=== PATIENT | female | born 1965 | race Caucasian/White ===

== ENCOUNTER 2017-05-06 10:11 | Day surgery (SDC) | payer OTHER, MEDICAID ==
[2017-05-02 11:17] VITALS: BP 173/77
[~2017-05-06] VITALS: Ht 162.6 cm; Wt 68.4 kg
[~2017-05-06 10:11] MED LIST: AMLO10TA2 PO; ASPI-515 PO; HYDR-3245 PO; HYDR1TAB14 PO; INSU100C5 SQ; INSU100C5 SQ-INSULIN; INSU100I29 SQ; METO25TA35 PO; PRAV40TA2 PO; VALS1TAB12 PO
[2017-05-06] MEDS ORDERED: EMPA1TAB PO (11:21)
[2017-05-06] MEDS ORDERED: LACTATED RINGERS 1,000 ML IV SCH (11:37)
[2017-05-06] MEDS ORDERED: FENTANYL PF 100 MCG/2ML ONE (13:01)
[2017-05-06] MEDS ORDERED: MIDAZOLAM 1 MG/ML, 2ML ONE (13:01)
[2017-05-06] MEDS ORDERED: METOCLOPRAMIDE 5 MG/ML, 2ML ONE (13:01)
[2017-05-06] MEDS ORDERED: ONDANSETRON 2MG/ML, 2ML ONE (13:01)
[2017-05-06] MEDS ORDERED: PROPOFOL 10 MG/ML, 20ML ONE (13:01)
[2017-05-06] MEDS ORDERED: CEFAZOLIN 1,000 MG ONE ×2 (13:01)
[2017-05-06] MEDS ORDERED: LIDOCAINE-MPF 2% ,5ML ONE (13:01)
[2017-05-06] MEDS ORDERED: ACETAMINOPHEN 325 MG TABLET PO PRN (13:30)
[2017-05-06] MEDS ORDERED: HYDROmorphone 1 MG/ML, 1ML IV PRN (13:30)
[2017-05-06] MEDS ORDERED: PROMETHAZINE 25 MG/ML, 1ML IV PRN (13:30)
[2017-05-06] MEDS ORDERED: DIAZEPAM 5 MG/ML, 2ML IVPush PRN (13:30)
[2017-05-06] MEDS ORDERED: FENTANYL PF 100 MCG/2ML IV PRN (13:30)
[2017-05-06] MEDS ORDERED: MIDAZOLAM 1 MG/ML, 2ML IV PRN (13:30)
[2017-05-06] MEDS ORDERED: hydrALAzine 20 MG/ML, 1ML IV PRN (13:30)
[2017-05-06] MEDS ORDERED: ONDANSETRON 2MG/ML, 2ML IVPush PRN (13:30)
[2017-05-06] MEDS ORDERED: OXYcodone 5 MG/5 ML ORAL.SOL UDC PO PRN (13:30)
[2017-05-06] MEDS ORDERED: MEPERIDINE/PF 25MG/0.5ML IVPush PRN (13:30)
[2017-05-06] MEDS ORDERED: ALBUTEROL/IPRATROPIUM 2.5MG/0.5MG, 3 ML NPPB PRN (13:30)
[2017-05-06] MEDS ORDERED: LABETALOL 5MG/ML, 20ML IV PRN (13:30)
[2017-05-06] MEDS ORDERED: OXYcodone 5 MG/5 ML ORAL.SOL UDC ONE (14:30)
[2017-05-06] MEDS ORDERED: ACETAMINOPHEN 650 MG/20.3 ML UDC ONE (14:30)
[2017-05-06] MEDS ORDERED: HYDROcodone/APAP 7.5-325MG/15ML UDC ONE (14:49)
[2017-05-06] MEDS ORDERED: HYDROcodone/APAP 7.5-325MG/15ML UDC PO PRN (15:00)
== END 2017-05-06 18:00 ==
LOC: OUT 10:11
PROVIDERS: ATTEND Orthopaedic Surgery
DX: M20.31 Hallux varus (acquired), right foot (principal); M20.11 Hallux valgus (acquired), right foot; E11.9 Type 2 diabetes mellitus without complications; I10 Essential (primary) hypertension; E78.5 Hyperlipidemia, unspecified
CPT/HCPCS: 28292; 73660; 76001; 82962; C1713; J0690; J2250; J2405; J2704; J2765; J3010; J3490

== ENCOUNTER 2017-08-05 17:15 | Inpatient (IN) | payer OTHER, MEDICAID ==
[~2017-08-05] VITALS: Ht 162.6 cm; Wt 71.1 kg
[~2017-08-05 17:15] MED LIST changes: +EMPA1TAB PO
[2017-08-05 18:17] LABS: BASOPHILS # (AUTO) 0.02 x10^3/uL (0-0.1); BASOPHILS % (AUTO) 0 % (0-1); EOSINOPHILS # (AUTO) 0.33 x10^3/uL (0-0.4); EOSINOPHILS % (AUTO) 4 % (1-7); LYMPHOCYTES # (AUTO) 0.98 x10^3/uL (1-3.4); LYMPHOCYTES % (AUTO) 12 % (22-44); MD NO; MEAN CORPUSCULAR HEMOGLOBIN 30.5 pg (27.0-34.8); MEAN CORPUSCULAR VOLUME 89.7 fL (80-100); MEAN PLATELET VOLUME 8.6 fL (7.4-10.4); MONOCYTES # (AUTO) 0.55 x10^3/uL (0.2-0.8); MONOCYTES % (AUTO) 7 % (2-9); NEUTROPHILS # (AUTO) 6.48 x10^3/uL (1.8-6.8); NEUTROPHILS % (AUTO) 78 % (42-75); PLATELET COUNT 323 x10^3/uL (130-400); RED BLOOD COUNT 4.67 x10^6/uL (3.82-5.3)
[2017-08-05 18:29] LABS: ALBUMIN 3.9 g/dL (3.4-5.0); ANION GAP 7 mmol/L (5-15); CHLORIDE 101 mmol/L (98-107)
[2017-08-05 18:33] LABS: TROPONIN I < 0.015 ng/mL (0.000-0.045)
[2017-08-05] MEDS ORDERED: HYDROcodone/APAP 5/325 TABLET PO STA (19:28)
[2017-08-05] MEDS ORDERED: AZITHROMYCIN 500 MG in SODIUM CHLORIDE 0.9% 250 ML IV ONE (19:30)
[2017-08-05] MEDS ORDERED: CEFTRIAXONE PMX 1GM/50ML 50 ML IV ONE (19:30)
[2017-08-05] MEDS ORDERED: CEFTRIAXONE PMX 1GM/50ML 50 ML ONE (19:31)
[2017-08-05] MEDS ORDERED: HYDROcodone/APAP 5/325 TABLET ONE (19:32)
[2017-08-05] MEDS ORDERED: ACETAMINOPHEN 325 MG TABLET PO PRN (20:00)
[2017-08-05] MEDS ORDERED: GUAIFENESIN/DM 200-20MG, 10ML UDC PO PRN (20:00)
[2017-08-05] MEDS ORDERED: OMNIPAQUE 350 MG/ML, 100ML BOTTLE ONE (20:00)
[2017-08-05] MEDS ORDERED: GUAIFENESIN/DM 200-20MG, 10ML UDC PO ONE (20:00)
[2017-08-05] MEDS ORDERED: GLUCAGON 1 MG IM PRN (20:30)
[2017-08-05] MEDS ORDERED: DEXTROSE 4 GM TAB.CHEW PO PRN (20:30)
[2017-08-05] MEDS ORDERED: DEXTROSE 50%, 50ML SYRINGE IVPush PRN (20:30)
[2017-08-05 20:40] VITALS: BP 118/70
[2017-08-05] MEDS: SODIUM CHLORIDE FLUSH 10ML SYR IVF SCH (21:00)
[2017-08-05] MEDS: INSULIN LISPRO 100 UNITS/ML, PEN SQ-INSULIN SCH (22:00)
[2017-08-05] MEDS: METOPROLOL TARTRATE 25 MG TABLET PO SCH (22:09)
[2017-08-05] MEDS: ACETAMINOPHEN 500 MG TABLET PO PRN (22:09)
[2017-08-05] MEDS: BENZONATATE 100 MG CAPSULE PO SCH (22:09)
[2017-08-05] MEDS: PRAVASTATIN 40 MG TABLET PO SCH (22:09)
[2017-08-05] MEDS: FLUTICASONE NASAL SPRAY 16GM NAS SCH (23:00)
[2017-08-05] MEDS ORDERED: MELATONIN 5 MG TABLET PO ONE (23:00)
[2017-08-06 02:07] VITALS: BP 127/62
[2017-08-06 07:08] VITALS: BP 117/67
[2017-08-06] MEDS ORDERED: HYDROCHLOROTHIAZIDE PO SCH (09:00)
[2017-08-06] MEDS ORDERED: [UNRECOGNIZED DRUG - OTHER] PO SCH (09:00)
[2017-08-06] MEDS ORDERED: VALSARTAN PO SCH (09:00)
[2017-08-06] MEDS: FLUTICASONE NASAL SPRAY 16GM NAS SCH ×2 (09:07→20:01)
[2017-08-06] MEDS: SODIUM CHLORIDE FLUSH 10ML SYR IVF SCH ×2 (09:07→20:01)
[2017-08-06] MEDS: VALSARTAN 160 MG TABLET PO SCH (09:08)
[2017-08-06] MEDS: BENZONATATE 100 MG CAPSULE PO SCH ×3 (09:08→20:01)
[2017-08-06] MEDS: HYDROCHLOROTHIAZIDE 25 MG TABLET PO SCH (09:08)
[2017-08-06] MEDS: AMLODIPINE 5 MG TABLET PO SCH (09:09)
[2017-08-06] MEDS: METOPROLOL TARTRATE 25 MG TABLET PO SCH ×2 (09:09→20:01)
[2017-08-06] MEDS: ACETAMINOPHEN 500 MG TABLET PO PRN (09:32)
[2017-08-06] MEDS: INSULIN LISPRO 100 UNITS/ML, PEN SQ-INSULIN SCH ×4 (09:32→19:55)
[2017-08-06 11:02] LABS: BASOPHILS % (AUTO) 0 % (0-1); EOSINOPHILS % (AUTO) 0 % (1-7); LYMPHOCYTES # (AUTO) 0.47 x10^3/uL (1-3.4); LYMPHOCYTES % (AUTO) 6 % (22-44); MD NO; MEAN CORPUSCULAR HGB CONC 33.8 g/dL (32.4-35.8); MEAN CORPUSCULAR VOLUME 88.9 fL (80-100); MEAN PLATELET VOLUME 8.8 fL (7.4-10.4); MONOCYTES % (AUTO) 3 % (2-9); NEUTROPHILS # (AUTO) 7.35 x10^3/uL (1.8-6.8); NEUTROPHILS % (AUTO) 92 % (42-75); PLATELET COUNT 298 x10^3/uL (130-400); RED BLOOD COUNT 4.16 x10^6/uL (3.82-5.3); RED CELL DISTRIBUTION WIDTH 13.9 % (9.6-15.2)
[2017-08-06] MEDS: GUAIFENESIN/DM 200-20MG, 10ML UDC PO PRN (12:00)
[2017-08-06 12:35] LABS: HEMOGLOBIN A1C 7.7 % (4.2-6.3)
[2017-08-06 12:41] VITALS: BP 108/60
[2017-08-06] MEDS ORDERED: HYDR-3307 PO (15:39)
[2017-08-06] MEDS: HYDROcodone/APAP 10/325 MG TABLET PO PRN (16:51)
[2017-08-06 19:23] VITALS: BP 135/82
[2017-08-06] MEDS: GUAIFENESIN ER 600 MG TABLET PO SCH (20:01)
[2017-08-06] MEDS: PRAVASTATIN 40 MG TABLET PO SCH (20:01)
[2017-08-07 00:28] VITALS: BP 155/68
[2017-08-07] MEDS ORDERED: INSULIN LISPRO 100 UNITS/ML, PEN SQ-INSULIN SCH (01:00)
[2017-08-07] MEDS: HYDROcodone/APAP 10/325 MG TABLET PO PRN ×2 (04:25→16:46)
[2017-08-07 04:47] VITALS: BP 136/68
[2017-08-07 07:20] VITALS: BP 143/56
[2017-08-07] MEDS: VALSARTAN 160 MG TABLET PO SCH (08:47)
[2017-08-07] MEDS: HYDROCHLOROTHIAZIDE 25 MG TABLET PO SCH (08:48)
[2017-08-07] MEDS: BENZONATATE 100 MG CAPSULE PO SCH ×3 (08:48→20:37)
[2017-08-07] MEDS: GUAIFENESIN ER 600 MG TABLET PO SCH ×2 (08:48→20:36)
[2017-08-07] MEDS: FLUTICASONE NASAL SPRAY 16GM NAS SCH ×2 (08:48→20:36)
[2017-08-07] MEDS: AMLODIPINE 5 MG TABLET PO SCH (08:48)
[2017-08-07] MEDS: SODIUM CHLORIDE FLUSH 10ML SYR IVF SCH ×2 (08:48→20:37)
[2017-08-07] MEDS: METOPROLOL TARTRATE 25 MG TABLET PO SCH ×2 (08:48→20:36)
[2017-08-07] MEDS: INSULIN LISPRO 100 UNITS/ML, PEN SQ-INSULIN SCH ×4 (08:49→20:38)
[2017-08-07] MEDS: methylPREDNISolone SOD SUCC 40 MG/ML IV SCH ×2 (11:53→19:30)
[2017-08-07] MEDS: AZITHROMYCIN 250 MG TABLET PO SCH (11:53)
[2017-08-07 12:18] VITALS: BP 123/57
[2017-08-07 18:59] VITALS: BP 135/56
[2017-08-07] MEDS: GUAIFENESIN/DM 200-20MG, 10ML UDC PO PRN (20:35)
[2017-08-07] MEDS: PRAVASTATIN 40 MG TABLET PO SCH (20:36)
[2017-08-08 00:39] VITALS: BP 149/53
[2017-08-08] MEDS: methylPREDNISolone SOD SUCC 40 MG/ML IV SCH ×2 (03:52→12:21)
[2017-08-08] MEDS: HYDROcodone/APAP 10/325 MG TABLET PO PRN ×2 (03:52→16:29)
[2017-08-08] MEDS: GUAIFENESIN/DM 200-20MG, 10ML UDC PO PRN ×2 (03:52→16:28)
[2017-08-08 06:55] VITALS: BP 117/55
[2017-08-08] MEDS: AZITHROMYCIN 250 MG TABLET PO SCH (08:40)
[2017-08-08] MEDS: METOPROLOL TARTRATE 25 MG TABLET PO SCH (08:40)
[2017-08-08] MEDS: HYDROCHLOROTHIAZIDE 25 MG TABLET PO SCH (08:40)
[2017-08-08] MEDS: GUAIFENESIN ER 600 MG TABLET PO SCH (08:40)
[2017-08-08] MEDS: AMLODIPINE 5 MG TABLET PO SCH (08:40)
[2017-08-08] MEDS: VALSARTAN 160 MG TABLET PO SCH (08:40)
[2017-08-08] MEDS: FLUTICASONE NASAL SPRAY 16GM NAS SCH (08:41)
[2017-08-08] MEDS: INSULIN LISPRO 100 UNITS/ML, PEN SQ-INSULIN SCH ×3 (08:41→16:58)
[2017-08-08] MEDS: BENZONATATE 100 MG CAPSULE PO SCH ×2 (08:41→16:29)
[2017-08-08] MEDS: SODIUM CHLORIDE FLUSH 10ML SYR IVF SCH (08:43)
[2017-08-08] MEDS ORDERED: AZIT250T89 PO (09:29)
[2017-08-08] MEDS ORDERED: GUAI5SYR PO (09:29)
[2017-08-08] MEDS ORDERED: METH4TAB2 PO (09:29)
[2017-08-08] MEDS ORDERED: ONDANSETRON 2MG/ML, 2ML IVPush PRN (09:30)
[2017-08-08 12:46] VITALS: BP 92/48
== END 2017-08-08 18:44 | disposition home or self-care (01) | DRG 189 ==
LOC: ED 18:46 → INTOOBSV 19:08 → EDIP 19:08 → 4EST 20:34 → OBSVTOIN 08-07 16:20
PROVIDERS: ADMIT Internal Medicine; ATTEND Internal Medicine
DX: J96.01 Acute respiratory failure with hypoxia (principal); Z99.81 Dependence on supplemental oxygen; J44.0 Chronic obstructive pulmonary disease with (acute) lower respiratory infection; J44.1 Chronic obstructive pulmonary disease with (acute) exacerbation; E11.9 Type 2 diabetes mellitus without complications; I10 Essential (primary) hypertension; H91.90 Unspecified hearing loss, unspecified ear; R07.2 Precordial pain; J20.8 Acute bronchitis due to other specified organisms; Z86.73 Personal history of transient ischemic attack (TIA), and cerebral infarction without residual deficits; Z87.891 Personal history of nicotine dependence
CPT/HCPCS: 36415; 71045; 71275; 80048; 82040; 82962; 83036; 84484; 85025; 93005; 96365; 96368; 96372; 96375; 96376; G0378; J0456; J0696; J2405; Q9967; J1815; J2920; J7050; J7512

== ENCOUNTER 2018-01-13 11:40 | Day surgery (SDC) | payer OTHER, MEDICAID ==
[~2018-01-13] VITALS: Ht 162.6 cm; Wt 68.4 kg
[~2018-01-13 11:40] MED LIST changes: +ASPI-496 PO; +AZIT250T89 PO; +GUAI5SYR PO; +HYDR-3307 PO; +INSU100I11 SC; +IRBE1TAB37 PO; +METH4TAB2 PO; +[UNRECOGNIZED DRUG - CODE] PO
[2018-01-13] MEDS ORDERED: MIDAZOLAM 1 MG/ML, 2ML ONE (12:28)
[2018-01-13] MEDS ORDERED: FENTANYL PF 250 MCG/5ML ONE (12:28)
[2018-01-13 12:54] VITALS: BP 148/55
[2018-01-13] MEDS: LACTATED RINGERS 1,000 ML IV SCH ×2 (13:22→13:37)
[2018-01-13] MEDS ORDERED: ACETAMINOPHEN 500 MG TABLET PO ONE (13:30)
[2018-01-13] MEDS ORDERED: BUPIVACAINE/PF 0.5% ONE (13:31)
[2018-01-13] MEDS ORDERED: LIDOCAINE/PF 1%, 30ML ONE (13:31)
[2018-01-13 13:35] LABS: ALANINE AMINOTRANSFERASE 64 U/L (12-78); ALBUMIN 3.9 g/dL (3.4-5.0); ANION GAP 6 mmol/L (5-15); CALCIUM 9.4 mg/dL (8.5-10.1); CHLORIDE 102 mmol/L (98-107)
[2018-01-13] MEDS ORDERED: ACETAMINOPHEN 500 MG TABLET ONE (13:35)
[2018-01-13 13:37] LABS: ALKALINE PHOSPHATASE 150 U/L (45-117); BILIRUBIN,TOTAL 0.5 mg/dL (0.2-1.0); TOTAL PROTEIN 8.2 g/dL (6.4-8.2)
[2018-01-13] MEDS ORDERED: CEFAZOLIN 1,000 MG ONE (13:49)
[2018-01-13] MEDS ORDERED: PROPOFOL 10 MG/ML, 20ML ONE (13:49)
[2018-01-13] MEDS ORDERED: SUCCINYLCHOLINE 20 MG/ML, 10ML ONE (13:49)
[2018-01-13] MEDS ORDERED: PROMETHAZINE 25 MG/ML, 1ML IV PRN (15:00)
[2018-01-13] MEDS ORDERED: ALBUTEROL SULFATE 2.5 MG/3 ML NPPB PRN (15:00)
[2018-01-13] MEDS ORDERED: ONDANSETRON ODT 8 MG PO PRN (15:00)
[2018-01-13] MEDS ORDERED: MORPHINE SULFATE 4 MG/ML, 1ML IVPush PRN (15:00)
[2018-01-13] MEDS ORDERED: hydrALAzine 20 MG/ML, 1ML IV PRN (15:00)
[2018-01-13] MEDS ORDERED: LORazepam 2 MG/ML, 1ML IVPush PRN (15:00)
[2018-01-13] MEDS ORDERED: HYDROmorphone 1 MG/ML, 1ML IV PRN (15:00)
[2018-01-13] MEDS ORDERED: LABETALOL 5MG/ML, 20ML IV PRN (15:00)
[2018-01-13] MEDS ORDERED: MEPERIDINE/PF 25MG/0.5ML IVPush PRN (15:00)
[2018-01-13] MEDS ORDERED: HYDROmorphone 2 MG/ML, 1ML ONE (15:37)
[2018-01-13] MEDS ORDERED: FENTANYL PF 100 MCG/2ML ONE (15:37)
[2018-01-13] MEDS: FENTANYL PF 100 MCG/2ML IV PRN ×2 (15:40→17:20)
[2018-01-13] MEDS ORDERED: DEXTROSE 50%, 50ML SYRINGE ONE (17:11)
[2018-01-13] MEDS ORDERED: DEXTROSE 50%, 50ML SYRINGE IVPush ONE (17:30)
[2018-01-13] MEDS ORDERED: ONDANSETRON ODT 8 MG ONE (17:35)
[2018-01-13 18:46] VITALS: BP 144/69
[2018-01-13] MEDS ORDERED: HYDROcodone/APAP 5/325 TABLET ONE (19:09)
[2018-01-13] MEDS ORDERED: LACTATED RINGERS 1,000 ML IV SCH (19:30)
[2018-01-13] MEDS ORDERED: OXYcodone/APAP 5/325MG TABLET PO PRN (19:30)
[2018-01-13] MEDS ORDERED: HYDROcodone/APAP 5/325 TABLET PO PRN ×2 (19:30)
[2018-01-13] MEDS ORDERED: INSULIN LISPRO 100 UNITS/ML, PEN SQ-INSULIN SCH (21:00)
[2018-01-13] MEDS ORDERED: INSULIN GLARGINE 100 UNITS/ML, PEN SQ-INSULIN SCH (21:00)
[2018-01-13] MEDS ORDERED: PRAVASTATIN 40 MG TABLET PO SCH (21:00)
[2018-01-14] MEDS ORDERED: ASPIRIN 81 MG TABLET EC PO SCH (06:00)
[2018-01-14] MEDS ORDERED: METOPROLOL TARTRATE 25 MG TABLET PO SCH (06:00)
[2018-01-14] MEDS ORDERED: HYDROCHLOROTHIAZIDE 12.5 MG CAPSULE PO SCH (09:00)
[2018-01-14] MEDS ORDERED: AMLODIPINE 5 MG TABLET PO SCH (09:00)
[2018-01-14] MEDS ORDERED: IRBESARTAN 150 MG TABLET PO SCH (09:00)
[2018-01-14] MEDS ORDERED: INSULIN LISPRO 100 UNITS/ML, PEN SQ-INSULIN SCH (09:00)
[2018-01-14] MEDS ORDERED: INSULIN GLARGINE 100 UNITS/ML, PEN SQ-INSULIN SCH (09:00)
== END 2018-01-13 21:25 | disposition home or self-care (01) ==
LOC: OUT 11:40 → 4NOR 18:13 → OUT 21:25
PROVIDERS: ATTEND Orthopaedic Surgery
DX: M20.11 Hallux valgus (acquired), right foot (principal); M24.575 Contracture, left foot; M20.41 Other hammer toe(s) (acquired), right foot; E11.9 Type 2 diabetes mellitus without complications; K21.9 Gastro-esophageal reflux disease without esophagitis; I10 Essential (primary) hypertension; E78.5 Hyperlipidemia, unspecified; E11.40 Type 2 diabetes mellitus with diabetic neuropathy, unspecified; Z86.73 Personal history of transient ischemic attack (TIA), and cerebral infarction without residual deficits; Z87.891 Personal history of nicotine dependence; Z79.82 Long term (current) use of aspirin; J44.9 Chronic obstructive pulmonary disease, unspecified; Z98.890 Other specified postprocedural states; Z79.4 Long term (current) use of insulin
CPT/HCPCS: 28285; 28308; 28750; 36415; 73620; 76001; 80053; 82947; 82962; C1713; J0330; J0690; J1170; J2250; J2704; J3010; J3490; J7120; Q0162

== ENCOUNTER → 2018-08-29 | Outpatient (CLI) | payer MEDICARE, MEDICAID ==
[~2018-08-29] MED LIST changes: -AMLO10TA2 PO; +AMLO10TA8 PO
== END | disposition home or self-care (01) ==
LOC: CVU 12:20
PROVIDERS: ATTEND Internal Medicine Cardiovascular Disease
DX: I37.1 Nonrheumatic pulmonary valve insufficiency (principal); I65.23 Occlusion and stenosis of bilateral carotid arteries; I11.9 Hypertensive heart disease without heart failure; E78.5 Hyperlipidemia, unspecified; I73.9 Peripheral vascular disease, unspecified; I63.9 Cerebral infarction, unspecified; Z87.891 Personal history of nicotine dependence; Z86.73 Personal history of transient ischemic attack (TIA), and cerebral infarction without residual deficits
CPT/HCPCS: 93306; 93880; 93922

== ENCOUNTER → 2018-09-04 | Outpatient (CLI) | payer MEDICARE, MEDICAID | END | disposition home or self-care (01) | LOC: CFH 13:42 | PROVIDERS: ATTEND Nurse Practitioner Family | DX: J32.0 Chronic maxillary sinusitis (principal); J34.1 Cyst and mucocele of nose and nasal sinus; J34.2 Deviated nasal septum | CPT/HCPCS: 70486 ==

== ENCOUNTER 2020-04-27 10:03 | Emergency (ER) | payer MEDICARE, MEDICAID ==
[~2020-04-27] VITALS: Ht 160 cm; Wt 70.2 kg
[~2020-04-27 10:03] MED LIST changes: +AMLO-211 PO; -AMLO10TA8 PO; +HYDR-3246 PO; -HYDR-3307 PO; -HYDR1TAB14 PO; +HYDR1TAB15 PO
--- NOTE | 2020-04-27 10:38 | NUR ---
PT AMBULATED TO ROOM FROM TRIAGE.
[2020-04-27 10:48] LABS: MICROSCOPIC NOT IND
[2020-04-27 11:03] LABS: BASOPHILS % (AUTO) 1 % (0-1); EOSINOPHILS % (AUTO) 3 % (1-7); LYMPHOCYTES % (AUTO) 16 % (22-44); MEAN CORPUSCULAR HEMOGLOBIN 30.9 pg (27.0-34.8); MEAN CORPUSCULAR HGB CONC 33.4 g/dL (32.4-35.8); MEAN PLATELET VOLUME 8.8 fL (7.4-10.4); MONOCYTES % (AUTO) 6 % (2-9); NEUTROPHILS % (AUTO) 75 % (42-75); PLATELET COUNT 318 x10^3/uL (130-400); RED BLOOD COUNT 4.73 x10^6/uL (3.82-5.3); RED CELL DISTRIBUTION WIDTH 14.1 % (9.6-15.2)
[2020-04-27 11:08] LABS: MD NO
[2020-04-27 11:16] LABS: ALANINE AMINOTRANSFERASE 21 U/L (12-78); ALBUMIN 4.2 g/dL (3.4-5.0); CALCIUM 9.2 mg/dL (8.5-10.1); CHLORIDE 100 mmol/L (98-107); CREATININE 1.17 mg/dL (0.55-1.02)
[2020-04-27 11:18] LABS: ALKALINE PHOSPHATASE 91 U/L (45-117); BILIRUBIN,TOTAL 0.5 mg/dL (0.2-1.0)
[2020-04-27 11:25] LABS: ANION GAP 4 mmol/L (5-15)
--- NOTE | 2020-04-27 12:20 | NUR ---
PT RESTING WAITING RESULTS BLANKETS AND PILLOW PROVIDED
--- NOTE | 2020-04-27 13:26 | NUR ---
RECVD REPORT FROM MARCIA IYER. PLAN OF CARE DISCUSSED
--- NOTE | 2020-04-27 13:46 | NUR ---
Patient/Caregiver given discharge instructions and they have confirmed that they understand the instructions. Patient ambulatory with steady gait.
[2020-04-27 13:47] VITALS: BP 155/56
== END 2020-04-27 13:49 | disposition home or self-care (01) ==
LOC: ED 11:39
DX: R10.13 Epigastric pain (principal); R11.0 Nausea; I10 Essential (primary) hypertension; E78.5 Hyperlipidemia, unspecified; E11.9 Type 2 diabetes mellitus without complications
CPT/HCPCS: 36415; 76700; 80053; 81003; 83690; 85025; 99284

== ENCOUNTER 2020-05-14 08:39 | Outpatient (CLI) | payer MEDICARE, MEDICAID ==
[2020-05-14] MEDS ORDERED: FENTANYL PF 100 MCG/2ML ONE (10:05)
[2020-05-14] MEDS ORDERED: MIDAZOLAM 1 MG/ML, 5ML ONE ×2 (10:05)
[2020-05-14] MEDS ORDERED: FLUMAZENIL 0.1 MG/1 ML, 5ML ONE (10:06)
[2020-05-14] MEDS ORDERED: NALOXONE 1 MG/ML, 2ML ONE (10:06)
[2020-05-14] MEDS ORDERED: PLEASE ENTER HEIGHT AND WEIGHT MC SCH (10:30)
== END 2020-05-14 23:59 | disposition home or self-care (01) ==
LOC: RAD 08:39
PROVIDERS: ATTEND Registered Nurse Registered Nurse First Assistant
DX: M54.5 Low back pain (principal); M41.86 Other forms of scoliosis, lumbar region; M54.2 Cervicalgia; M48.03 Spinal stenosis, cervicothoracic region; I10 Essential (primary) hypertension; E11.9 Type 2 diabetes mellitus without complications; Z88.8 Allergy status to other drugs, medicaments and biological substances; Z87.891 Personal history of nicotine dependence; Z79.899 Other long term (current) drug therapy; Z79.4 Long term (current) use of insulin; Z79.82 Long term (current) use of aspirin; Z98.890 Other specified postprocedural states
CPT/HCPCS: 72050; 72110; 72141; 72148; 99156; 99157; J2250; J3010; J2310